=== PATIENT | male | born 1955 | race Two or more races ===

== ENCOUNTER → 2017-07-02 | Outpatient (CLI) | payer MEDICARE ==
[~2017-07-02] VITALS: Ht 167.6 cm; Wt 79.8 kg
[~2017-07-02] MED LIST: LISI1TAB11 PO; SIMV-261 PO
[2017-07-02 12:46] VITALS: BP 130/78
== END | disposition home or self-care (01) ==
LOC: SRCNTR 12:16
PROVIDERS: ATTEND Internal Medicine Critical Care Medicine
DX: I10 Essential (primary) hypertension (principal); E78.5 Hyperlipidemia, unspecified; R05 Cough; R06.00 Dyspnea, unspecified; R06.02 Shortness of breath; Z85.46 Personal history of malignant neoplasm of prostate; Z90.79 Acquired absence of other genital organ(s)
CPT/HCPCS: G0463

== ENCOUNTER → 2017-09-10 | Outpatient (CLI) | payer MEDICARE | END | disposition home or self-care (01) | LOC: RESP 09:36 | PROVIDERS: ATTEND Internal Medicine Critical Care Medicine | DX: J44.9 Chronic obstructive pulmonary disease, unspecified (principal) | CPT/HCPCS: 94010; 94726; 94727; 94729 ==